=== PATIENT | female | born 1965 | race Two or more races ===

== ENCOUNTER 2016-09-29 13:35 | Emergency (ER) | payer OTHER ==
[2016-09-29 13:40] VITALS: BMI 26.2
[2016-09-29 15:29] LABS: BASOPHIL 0.3 % (0-2.0); EOSINOPHIL 0.3 % (0-4.5); MCH 26.4 pg (25.7-33.7); MCHC 31.4 g/dl (32.0-36.0); MEAN PLT VOLUME 9.3 fl (7.5-11.1); NEUTROPHILS 85.7 % (42.8-82.8); PLATELET COUNT 236 K/MM3 (134-434); RDW 12.6 % (11.6-15.6); WHITE BLOOD COUNT 16.9 K/mm3 (4.0-10.0)
[2016-09-29 15:55] LABS: ALBUMIN 4.3 g/dl (3.4-5.0); ALK PHOS 98 U/L (45-117); ANION GAP 9 (8-16); BILIRUBIN,TOTAL 0.3 mg/dL (0.2-1.0); CALCIUM 9.5 mg/dL (8.5-10.1); CO2 27 mmol/L (21-32); CREATININE 0.6 mg/dL (0.55-1.02); GLUCOSE,RANDOM 84 mg/dL (74-106); SGOT/AST 22 U/L (15-37); SGPT/ALT 26 U/L (12-78); TOT PROT 8.1 g/dl (6.4-8.2)
[2016-09-29] MEDS ORDERED: FAMOTIDINE 20 MG/50 ML IVPB 50 ML IVPB ONE ×2 (16:54→17:00)
[2016-09-29] MEDS ORDERED: MAG HYDROX/AL HYDROX/SIMETH 30 ML UNIT-DOSE CUP PO ONE (16:54)
[2016-09-29] MEDS ORDERED: MAG HYDROX/AL HYDROX/SIMETH 30 ML UNIT-DOSE CUP ONE (17:00)
--- NOTE | 2016-09-29 17:00 | PDOC ---
Attending Attestation - Resident Resident Name: Desirae Coreas - ED Attending Attestation I have performed the following: I have examined & evaluated the patient, The case was reviewed & discussed with the resident, I agree w/resident's findings & plan, Exceptions are as noted - HPI HPI: 09/29/16 16:54 51y/o F p/w 2 weeks of intermittent generalized abdominal discomfort, sometimes worse with PO intake, not associated with n/v/f/c, slight nonbloody diarrhea. no travel/abx/sick contact. Pain worsened over last 2 days so presents for eval. no urinary complaints. no h/o EGD/c-scopy - Physicial Exam PE: 09/29/16 16:56 VSS soft/nd. epigastric discomfort to palpation without guarding/rebound BS nl. no cvat bedside sono shows normal gallbladder - Medical Decision Making 09/29/16 16:56 Patient seen and evaluated with the resident. I agree with the overall evaluation, assessment, and management with the following summary of visit: 51y/o F with intermittent abd pain for 2 weeks, worse over 2 days. mild diarrhea. likely gastritis, r/o hepatic/pancreatic/biliary etiology. ? enteritis labs, ua RUQ sono trial of pepcid reassess, GI followup if above wnl 09/29/16 17:28 leukocytosis with otherwise normal chem/lipase/lactate. UA pending, sono pending. Patient was signed out to the oncoming ED physician to follow-up the results, reassess the patient, and dispo accordingly.
[2016-09-29 17:31] LABS: URINE APPEARANCE CLEAR; URINE BILIRUBIN NEGATIVE (NEGATIVE); URINE BLOOD NEGATIVE (NEGATIVE); URINE COLOR COLORLESS; URINE GLUCOSE (UA) NEGATIVE (NEGATIVE); URINE KETONE NEGATIVE (NEGATIVE); URINE LEUK ESTERASE NEGATIVE (NEGATIVE); URINE NITRITE NEGATIVE (NEGATIVE); URINE PROTEIN NEGATIVE (NEGATIVE); URINE UROBILINOGEN NEGATIVE E.U./dl (0.2-1.0)
--- NOTE | 2016-09-29 17:47 | PDOC ---
History of Present Illness - General Chief Complaint: Pain, Acute Stated Complaint: SOB Time Seen by Provider: 09/29/16 14:57 History Source: Patient Exam Limitations: No Limitations, Language Barrier - History of Present Illness Initial Comments: 09/29/16 17:47 This is a 51 yo F with PMH of asthma and HTN (untreated), who presents with r sided abd pain since this morning. Pain started after morning coffee, is sharp, constant, located in R lower and upper quadrants. nonradiating, associated with chills, nausea and 1 episode of nonbloody, nonmelenous diarrhea. She had pain like this 1 mo ago that was less severe, started after a meal, was associated with one episode of diarrhea and nausea and self remitted after 3 hr. She denies fever, recent weight loss, chest pain, sob, h/a, diaphoresis, dysuria, hematuria, urgency. She has never had endoscopy, colonoscopy or GI surgery. She takes no medications or supplement except for tylenol for pain and raw Garlic, which she uses to treat her HTN. Her mother had a cholecystectomy. No PCP 09/29/16 17:55 Past History - Travel Traveled outside of the country in the last 30 days: No Close contact w/someone who was outside of country & ill: No - Past Medical History Allergies/Adverse Reactions: Allergies Allergy/AdvReac Type Severity Reaction Status Date / Time aspirin Allergy Verified 09/29/16 13:40 Home Medications: Ambulatory Orders Acetaminophen [Tylenol] 650 mg PO PRN 09/29/16 Asthma: Yes HTN: Yes - Psycho/Social/Smoking Cessation Hx Suicidal Ideation: No Smoking History: Never smoked Hx Alcohol Use: No Drug/Substance Use Hx: No Review of Systems - Review of Systems Able to Perform ROS?: Yes Is the patient limited Sinhala proficient: Yes Constitutional: Yes: Chills. No: Fever, Unintentional Wgt. Loss HEENTM: No: Throat Pain, Throat Swelling Respiratory: No: Cough, Orthopnea, Shortness of Breath, Wheezing Cardiac (ROS): No: Chest Pain, Edema, Palpitations, Syncope, Chest Tightness ABD/GI: Yes: Diarrhea, Nausea. No: Abdominal Distended, Abd. Pain w/ defecation , Blood Streaked Bowels, Constipated, Poor Fluid Intake, Vomiting, Abdominal cramping, Tarry Stools : No: Dysuria, Flank Pain Musculoskeletal: No: Back Pain, Gout, Neck Pain Integumentary: No: Dryness, Pruritus, Rash, Sweating Neurological: No: Headache, Numbness, Paresthesia Psychiatric: No: Anxiety Endocrine: No: Change in Weight Hematologic/Lymphatic: No: Anemia, Blood Clots, Easy Bleeding, Easy Bruising All Other Systems: Reviewed and Negative *Physical Exam - Vital Signs Last Vital Signs Temp Pulse Resp BP Pulse Ox 97.8 F 71 18 158/94 100 09/29/16 13:37 09/29/16 13:37 09/29/16 13:37 09/29/16 13:37 09/29/16 14:40 - Physical Exam Comments: 09/29/16 19:01 GENERAL: mild distress, aaox3 HEENT:perrla, eomi, sclera anicteric, conjunctiva clear CV:rrr s1s2 PULM: cta b/l GI: mild/mod tenderness in ruq, rlq, no tenderness, + rebound, negative murphys MUSCULOSKELETAL: no peripheral edema NEURO: cn grossly intact ED Treatment Course - LABORATORY CBC & Chemistry Diagram: 09/29/16 15:20 09/29/16 15:20 - ADDITIONAL ORDERS Additional order review: Laboratory Results 09/29/16 09/29/16 16:15 15:20 Sodium 139 Potassium 4.3 Chloride 103 Carbon Dioxide 27 Anion Gap 9 BUN 7 Creatinine 0.6 Creat Clearance w eGFR > 60 Random Glucose 84 Lactic Acid 1.5 Calcium 9.5 Total Bilirubin 0.3 AST 22 ALT 26 Alkaline Phosphatase 98 Total Protein 8.1 Albumin 4.3 Lipase 66 L 09/29/16 15:20 RBC 4.64 MCV 84.0 MCHC 31.4 L RDW 12.6 MPV 9.3 Neutrophils % 85.7 H Lymphocytes % 9.8 Monocytes % 3.9 Eosinophils % 0.3 Basophils % 0.3 - RADIOLOGY Radiology Studies Ordered: Category Date Time Status ABDOMEN US -LIMITED [US] Stat Ultrasound 09/29/16 16:54 Ordered - Medications Given in the ED: ED Medications Discontinued Medications Generic Name Dose Route Start Last Admin Trade Name Freq PRN Reason Stop Dose Admin Al Hydroxide/Mg Hydroxide 30 ml 09/29/16 16:54 09/29/16 17:00 Mylanta Oral Suspension - PO 09/29/16 16:55 30 ml ONCE ONE Administration Famotidine/Sodium Chloride 50 mls @ 100 mls/hr 09/29/16 16:54 09/29/16 17:00 Pepcid 20 Mg Premixed Ivpb - IVPB 09/29/16 17:23 100 mls/hr ONCE ONE Administration Medical Decision Making - Medical Decision Making 09/29/16 19:05 patient presents with r sided abd pain, r/p cholecustitis, colitis, renal colic , bleed bedside US: GB unremarkable, no stones, no collection in morrisons poucn, unremarkable R kidney and liver cbc diff, cmp, lactate, GB US, IVF 1L NS wbc 16, cmp unremarkable, GB US normal GB, no stones but dilated biliary tree patient given zosyn and flagyl IV, 1L NS, maalox, PPI symptomatic improvement. ordered CT abd/pelvis with IV contrast 09/29/16 19:09 *DC/Admit/Observation/Transfer Diagnosis at time of Disposition: Abdominal pain
[2016-09-29] MEDS ORDERED: PIPERACILLIN/TAZOB 3.375 GM 3.375 GM in DEXTROSE 5%-WATER - 50 ML IVPB ONE ×2 (18:40→19:13)
[2016-09-29] MEDS ORDERED: SODIUM CHLORIDE 1,000 ML IV STA (18:40)
[2016-09-29] MEDS ORDERED: METRONIDAZOLE 500 MG PREMIXED 100 ML IVPB ONE ×2 (18:40→18:46)
[2016-09-29] MEDS ORDERED: PIPERACILLIN/TAZOB 3.375 GM 50 ML IVPB ONE ×2 (18:46→19:47)
[2016-09-29] MEDS ORDERED: amLODIPine BESYLATE 5 MG TABLET (FP) PO ONE (21:03)
[2016-09-29] MEDS ORDERED: amLODIPine BESYLATE 5 MG TABLET (FP) ONE (21:04)
--- NOTE | 2016-09-29 21:11 | PDOC ---
*Physical Exam - Vital Signs Last Vital Signs Temp Pulse Resp BP Pulse Ox 98.4 F 72 18 159/99 100 09/29/16 18:05 09/29/16 18:05 09/29/16 18:05 09/29/16 18:05 09/29/16 18:05 ED Treatment Course - LABORATORY CBC & Chemistry Diagram: 09/29/16 15:20 09/29/16 15:20 - ADDITIONAL ORDERS Additional order review: Laboratory Results 09/29/16 09/29/16 09/29/16 16:58 16:15 15:20 Sodium 139 Potassium 4.3 Chloride 103 Carbon Dioxide 27 Anion Gap 9 BUN 7 Creatinine 0.6 Creat Clearance w eGFR > 60 Random Glucose 84 Lactic Acid 1.5 Calcium 9.5 Total Bilirubin 0.3 AST 22 ALT 26 Alkaline Phosphatase 98 Total Protein 8.1 Albumin 4.3 Lipase 66 L Urine Color Colorless Urine Appearance Clear Urine pH 8.0 Ur Specific Lolita 1.015 Urine Protein Negative Urine Glucose (UA) Negative Urine Ketones Negative Urine Blood Negative Urine Nitrite Negative Urine Bilirubin Negative Urine Urobilinogen Negative Ur Leukocyte Esterase Negative 09/29/16 15:20 RBC 4.64 MCV 84.0 MCHC 31.4 L RDW 12.6 MPV 9.3 Neutrophils % 85.7 H Lymphocytes % 9.8 Monocytes % 3.9 Eosinophils % 0.3 Basophils % 0.3 - Medications Given in the ED: ED Medications Discontinued Medications Generic Name Dose Route Start Last Admin Trade Name Freq PRN Reason Stop Dose Admin Al Hydroxide/Mg Hydroxide 30 ml 09/29/16 16:54 09/29/16 17:00 Mylanta Oral Suspension - PO 09/29/16 16:55 30 ml ONCE ONE Administration Famotidine/Sodium Chloride 50 mls @ 100 mls/hr 09/29/16 16:54 09/29/16 17:00 Pepcid 20 Mg Premixed Ivpb - IVPB 09/29/16 17:23 100 mls/hr ONCE ONE Administration Sodium Chloride 1,000 mls @ 1,000 mls/hr 09/29/16 18:40 09/29/16 18:48 Normal Saline - IV 09/29/16 19:39 1,000 mls/hr ASDIR STA Administration Metronidazole 100 mls @ 100 mls/hr 09/29/16 18:40 09/29/16 18:48 Flagyl 500mg Premixed Ivpb - IVPB 09/29/16 19:39 100 mls/hr ONCE ONE Administration Piperacillin Sod/Tazobactam 50 mls @ 100 mls/hr 09/29/16 18:40 09/29/16 19:54 Sod 3.375 gm/ Dextrose IVPB 09/29/16 19:09 100 mls/hr ONCE ONE Administration Protocol Piperacillin Sod/Tazobactam 50 mls @ 100 mls/hr 09/29/16 19:13 09/29/16 19:53 Sod 3.375 gm/ Dextrose IVPB 09/29/16 19:42 100 mls/hr ONCE ONE Administration Protocol Medical Decision Making - Medical Decision Making 09/29/16 21:04 ct scan of abd/pelvis is negative with exception of dilated CBD. It is was explained that the pt could be admitted for MRCP for further evaluation but she does not want to be admitted -her pain is actually on her rt sided and she points to the area above her rt hip. There is no guarding or rebound on abd exam -pt wants a BP medication but does not remember the name of the hypertensive meds she had been on previously. She last used the BP med a year ago pharmacy [facility] [address] pt given a copy of her labs and dictation of her imaging studies she states she will followup at our [facility] *DC/Admit/Observation/Transfer Diagnosis at time of Disposition: Abdominal pain Qualifiers: Abdominal location: right upper quadrant Qualified Code(s): R10.11 - Right upper quadrant pain - Discharge Dispostion Disposition: HOME Condition at time of disposition: Stable - Prescriptions Prescriptions: Metronidazole [Flagyl -] 250 mg PO TID #21 tablet - Referrals - Patient Instructions Printed Discharge Instructions: DI for Abdominal Pain-Adult Additional Instructions: please follow up with a primary doctor [facility] [phone] please pecan picker your medications at your pharmacy
[2016-09-29 21:36] VITALS: BP 132/78; PULSE 72; TEMP 98.6
== END 2016-09-29 21:36 | disposition home or self-care (01) ==
LOC: JER 13:35
PROC: 3E03329 Introduction of Other Anti-infective into Peripheral Vein, Percutaneous Approach (ICD-10-PCS; principal; 2016-09-29)
PROC: 3E033GC Introduction of Other Therapeutic Substance into Peripheral Vein, Percutaneous Approach (ICD-10-PCS; 2016-09-29)
PROC: 3E0337Z Introduction of Electrolytic and Water Balance Substance into Peripheral Vein, Percutaneous Approach (ICD-10-PCS; 2016-09-29)
DX: R10.9 Unspecified abdominal pain (principal); I10 Essential (primary) hypertension; J45.909 Unspecified asthma, uncomplicated; Z88.6 Allergy status to analgesic agent
CPT/HCPCS: 36415; 74177-TC; 76705-TC; 80053; 81003; 83605; 83690; 85025; 96365; 96366; 96367; 99284-25